=== PATIENT | male | born 1990 | race African-American/Black ===

== ENCOUNTER 2020-11-24 15:23 | Inpatient (IN) | payer OTHER ==
[~2020-11-24] VITALS: Ht 188 cm; Wt 99.9 kg
[~2020-11-24 15:23] MED LIST: VARE05TA PO
[2020-11-24 18:00] LABS: HEMATOCRIT 49.2 % (42.0-52.0); HEMOGLOBIN 16.5 g/dl (13.5-17.5); MEAN CORPUSCULAR HGB CONC 33.5 g/dl (32.0-36.5); MEAN CORPUSCULAR VOLUME 83.4 fl (80.0-96.0); PLATELET COUNT, AUTOMATED 203 10^3/uL (150-450); WHITE BLOOD COUNT 7.1 10^3/uL (4.0-10.0)
[2020-11-24 18:28] LABS: AMPHETAMINES LEVEL URINE NEGATIVE (NEGATIVE); BARBITURATES URINE NEGATIVE (NEGATIVE); BENZODIAZEPINES URINE NEGATIVE (NEGATIVE); CANNABINOIDS URINE NEGATIVE (NEGATIVE); COCAINE METABOLITE URINE NEGATIVE (NEGATIVE); METHADONE URINE NEGATIVE (NEGATIVE); OPIATES URINE NEGATIVE (NEGATIVE); PHENCYCLIDINE URINE NEGATIVE (NEGATIVE)
[2020-11-24 18:32] LABS: RSV AMPLIFICATION NEGATIVE (NEGATIVE)
[2020-11-24 18:36] LABS: ACETAMINOPHEN LEVEL < 2.0 UG/ML (10.0-30.0); ALBUMIN 4.1 GM/DL (3.2-5.2); ALT/SGPT 51 U/L (12-78); BILIRUBIN,DIRECT 0.2 MG/DL (0.0-0.2); BILIRUBIN,TOTAL 0.6 MG/DL (0.2-1.0); BLOOD UREA NITROGEN 8 MG/DL (7-18); CALCIUM LEVEL 9.4 MG/DL (8.5-10.1); CARBON DIOXIDE LEVEL 28 MEQ/L (21-32); CHLORIDE LEVEL 104 MEQ/L (98-107); CREATININE FOR GFR 1.05 MG/DL (0.70-1.30); ETHYL ALCOHOL (ETHANOL) 0.004 % (0.000-0.010); GLOMERULAR FILTRATION RATE > 60.0 (>60); GLUCOSE, FASTING 91 MG/DL (70-100); POTASSIUM SERUM 4.3 MEQ/L (3.5-5.1); SODIUM LEVEL 138 MEQ/L (136-145); TOTAL PROTEIN 7.7 GM/DL (6.4-8.2)
[2020-11-24] MEDS ORDERED: MAALOX 30 ML SUSP *UDC PO PRN (20:50)
[2020-11-24] MEDS ORDERED: OLANZapine ORAL DISINTEGRATING TAB 5MG PO PRN (20:50)
[2020-11-24] MEDS ORDERED: ACETAMINOPHEN TAB 650MG DOSE (2X325MG) PO PRN (20:50)
[2020-11-24 22:26] VITALS: BP 124/85
[2020-11-24 22:30] VITALS: BP 124/85
[2020-11-24] MEDS: traZODone 50 MG TAB PO PRN (23:01)
[2020-11-25] MEDS ORDERED: LORazepam 2 MG TAB PO PRN (01:15)
[2020-11-25 06:46] VITALS: BP 143/100
[2020-11-25 06:52] VITALS: BP 143/100
[2020-11-25] MEDS: NICOTINE 21MG/24HR 1 EA TRANSDERMAL TD SCH (09:31)
[2020-11-25] MEDS: MULTIVITAMINS/MINERALS THERAP 1 TAB PO SCH (09:31)
[2020-11-25] MEDS: THIAMINE 100 MG TAB PO SCH ×2 (09:32→22:36)
[2020-11-25] MEDS: FOLIC ACID 1 MG TAB PO SCH (09:32)
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
[2020-11-25] MEDS: SERTRALINE HCL 50 MG TAB PO SCH (11:14)
--- NOTE | 2020-11-25 14:29 | HPEPDOC ---
General Date of Admission November 24, 2020 at 20:46 Date of Service: November 25, 2020 Attending Physician: VANESSA ASKEW MD Chief Complaint The patient is a 30-year-old male admitted with a reason for visit of Unspecified Depressive D/O. History of Present Illness 30 yo m with a history of depression and prior suicide attempts/gestures who was referred to the ED for psychiatric evaluation by his mental health provider after he expressed worsening depression with invasive thoughts of passive suicidal ideation. In the ED CBC, BMP, and tox screen were wnl and he was a dmitted to the [facility] for psychiatric evaluation and management. Medicine is consulted for medical evaluation. Home Medications No Active Prescriptions or Reported Meds Allergies Coded Allergies: No Known Allergies (Unverified , 06/24/14) Past Medical History Medical History Depression with prior suicide attempt Surgical History None Family History Significant Family History: Other (Depression) Social History * Smoker: current smoker Alcohol: heavy (daily drinker) Recent Travel/Sick Contacts: Denies: Recent travel, Recent sick contacts Psychosocial History: Decreased mood, Depression A-FIB/CHADSVASC A-FIB History Current/History of A-Fib/PAF?: No Current PO Anticoag Therapy: No Age/Risk Factor Scoring CHADSVASC: CHADSVASC Response (Comments) Value Age Risk Factor Age < 65 years old 0 Gender Risk Factor Male 0 Hx of CHF No 0 Hx of HTN No 0 Hx of Stroke/TIA/or VTE No 0 Hx of Diabetes No 0 Hx of Vascular Disease No 0 Total 0 Treatment Treatment ordered: NONE Reason Anticoagulant not given: Not indicated/[id number] Review of Systems Constitutional: Denies: Chills, Fever, Night Sweats Eyes: Denies: Pain, Vision change ENT: Denies: Head Aches, Ear Pain, Dysphagia Skin: Denies: Rash, Lesions, Breakdown Pulmonary: Denies: Dyspnea, Cough Cardiovascular: Denies: Chest Pain, Palpitations, Orthopnea, Paroxysmal Noc. Dyspnea, Lt Headedness Gastrointestinal: Denies: Nausea, Vomiting, Abdominal Pain, Diarrhea Genitourinary: Denies: Dysuria, Frequency, Incontinence, Retention Hematologic: Denies: Bruising, Bleeding Excessively Endocrine: Denies: Polydipsia, Polyphagia, Polyuria, Heat Intolerance, Cold In tolerance, Other Endocrine Sx Musculoskeletal: Denies: Neck Pain, Back Pain, Joint Pain, Muscle Pain, Spasms Neurological: Denies: Weakness, Numbness, Change in speech, Confusion Psych: Reports: Depression, Thoughts of Self Harm; Denies: Mood Normal (depressed mood), Thoughts of Harming Other Physical Examination General Exam: Positive: Alert, No Acute Distress Eye Exam: Positive: PERRLA, Conjunctiva & lids normal, EOMI; Negative: Sclera icteric ENT Exam: Positive: Atraumatic, Mucous membr. moist/pink, Pharynx Normal Neck Exam: Positive: Supple; Negative: JVD, thyromegaly Chest Exam: Positive: Clear to auscultation, Normal air movement Heart Exam: Positive: Rate Normal, Regular Rhythm, Normal S1, Normal S2; Negative: Murmurs, Rubs Abdomen Exam: Positive: Normal bowel sounds, Soft; Negative: Tenderness, Hepatospenomegaly Extremity Exam: Positive: Normal pulses; Negative: Clubbing, Cyanosis, Edema Skin Exam: Positive: Nl turgor and temperature; Negative: Breakdown, Lesion Neuro Exam: Positive: Normal Gait, Normal Speech, Cranial Nerves 3-12 NL, Reflexes 2+ Psych Exam: Positive: Memory Intact, Oriented x 3; Negative: Mood NL (depressed mood) Vital Signs Vital Signs Date Time Temp Pulse Resp B/P (MAP) Pulse Ox O2 Delivery O2 Flow Rate FiO2 11/25/20 06:52 96.8 96 16 143/100 (114) 98 Room Air Laboratory Data Labs 24H Laboratory Tests 2 11/24/20 17:46: Nucleated Red Blood Cells % (auto) 0.0, Anion Gap 6L, Glomerular Filtration Rate > 60.0, Calcium Level 9.4, Total Bilirubin 0.6, Direct Bilirubin 0.2, Aspartate Amino Transf (AST/SGOT) 28, Alanine Aminotransferase (ALT/SGPT) 51, Alkaline Phosphatase 92, Total Protein 7.7, Albumin 4.1, Albumin/Globulin Ratio 1.1, Thyroid Stimulating Hormone (TSH) 1.160, Salicylates Level 2.0L, Urine Opiates Screen NEGATIVE, Urine Methadone Screen NEGATIVE, Acetaminophen Level < 2.0L, Urine Barbiturates Screen NEGATIVE, Urine Phencyclidine Screen NEGATIVE, Urine Amphetamines Screen NEGATIVE, Urine Benzodiazepines Screen NEGATIVE, Urine Cocaine Metabolite Screen NEGATIVE, Urine Cannabinoids Screen NEGATIVE, Ethyl Alcohol Level 0.004, Coronavirus (COVID-19)(PCR) NEGATIVE, Influenza Type A (RT- PCR) NEGATIVE, Influenza Type B (RT-PCR) NEGATIVE, Respiratory Syncytial Virus (PCR) NEGATIVE CBC/BMP Laboratory Tests 11/24/20 17:46 Assessment/Plan 30 yo M with a history of depression who is admitted to the [facility] for severe depression with suicidal ideation. Depression with suicidal ideation: -Plan per primary psych team Nicotine addiction: -Declined replacement therapy -Counselled to consider quitting for health benefit. Alcohol use disorder with c/f dependence: -Was placed on CIWA protocol with symptom trigger PO ativan PRN. -MVI/folic acid/thiamine He has no other active medical issues at this time. Medicine will sign off. Plan / VTE VTE Prophylaxis Ordered?: No VTE Exclusion Mechanical Proph: Low Risk for VTE VTE Exclusion Pharmacological: At Low Risk for VTE VANESSA ASKEW MD November 25, 2020 12:01
[2020-11-25 16:11] VITALS: BP 113/70
[2020-11-25] MEDS: traZODone 50 MG TAB PO PRN (22:36)
[2020-11-26 06:23] VITALS: BP 146/82
[2020-11-26] MEDS: SERTRALINE HCL 50 MG TAB PO SCH (09:50)
[2020-11-26] MEDS: FOLIC ACID 1 MG TAB PO SCH (09:50)
[2020-11-26] MEDS: THIAMINE 100 MG TAB PO SCH ×2 (09:50→20:53)
[2020-11-26] MEDS: MULTIVITAMINS/MINERALS THERAP 1 TAB PO SCH (09:50)
[2020-11-26] MEDS: NICOTINE 21MG/24HR 1 EA TRANSDERMAL TD SCH (09:51)
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
[2020-11-26 16:12] VITALS: BP 119/79
[2020-11-26 20:40] VITALS: BP 117/78
[2020-11-26] MEDS: traZODone 50 MG TAB PO PRN (20:53)
[2020-11-27 06:59] VITALS: BP 117/76
--- NOTE | 2020-11-27 09:03 | MHIPNPDOC ---
[facility] Progress Note Progress Note DATE OF SERVICE: 11/27/20 The patient remains in his room most of the time and is extremely withdrawn, preoccupied and quite blunted. He states that he has no appetite and not been eating very much and only using snacks here and there. He is drinking enough. He has no physical complaints and not in any acute distress. He is fully cooperating with the medicine and has no complaint of side effect. So far not feeling much different. He appears markedly depressed, withdrawn, but denies any active suicidal thoughts. HISTORY: . VITAL SIGNS: See below. NEW TEST RESULTS: . CURRENT MEDICATIONS: See below. MENTAL STATUS EXAMINATION: Patient is a 30-year old male, who is withdrawn, preoccupied. Speech: Is , relevant, but not productive and not spontaneous. Language skills are , only fair. Thought processes including: Relevant. Thought content: He is denying any active suicidal thoughts or plan, but stated very worthless, hopeless]. Abstract reasoning, and computation: Fair. Description of associations: Lacking any spontaneous and not productive. Description of abnormal or psychotic thoughts: Denies any psychotic symptoms. Judgment: Fair. Insight: fair.. Orientation: , Oriented. Recent and remote memory: Fair. Attention span and concentration: Fair. Language: . Fund of knowledge: Average. Mood: Markedly depressed. Affect: Blunted and preoccupied]. DIAGNOSES: 1. . Major depression, severe, without psychosis 2. . 3. . ASSESSMENT:[Remains in markedly depressed to state] MANAGEMENT PLAN: [. Continue with the supportive therapy and antidepressant]. TIME SPENT: [20] minutes. Vital Signs Vital Signs Date Time Temp Pulse Resp B/P (MAP) Pulse Ox O2 Delivery O2 Flow Rate FiO2 11/27/20 06:59 98.4 112 16 117/76 (90) 98 Room Air Current Medications Current Medications Medications (Trade) Dose Ordered Sig/Pato Route PRN Reason Start Time Stop Time Status Last Admin Dose Admin Acetaminophen (Tylenol Tab) 650 mg Q6HP PRN PO HEADACHE or DISCOMFORT 11/24/20 20:50 Al Hydrox/Mg Hydrox/Simethicone (Mylanta) 30 ml Q4HP PRN PO HEARTBURN/INDIGESTION 11/24/20 20:50 Folic Acid (Folic Acid) 1 mg DAILY PO 11/25/20 09:00 11/26/20 09:50 Home Med (Med Rec Complete!) ASDIRECTED XX 11/24/20 19:15 11/24/20 19:16 DC Lorazepam (Ativan) 2 mg ASDIRECTED PRN PO SEE PROTOCOL 11/25/20 01:15 Magnesium Hydroxide (Milk Of Magnesia) 30 ml DAILYPRN PRN PO CONSTIPATION 11/24/20 20:50 Multivitamins (Theragram-M) 1 tab DAILY PO 11/25/20 09:00 11/26/20 09:50 Nicotine (Nicoderm Cq 21mg) 1 patch DAILY TD 11/25/20 09:00 11/26/20 09:51 Olanzapine (ZyPREXA ZYDIS) 5 mg Q4HP PRN PO ANXIETY/AGITATION 11/24/20 20:50 Sertraline HCl (Zoloft) 50 mg DAILY PO 11/25/20 09:00 11/26/20 10:38 DC 11/26/20 09:50 Sertraline HCl (Zoloft) 100 mg DAILY PO 11/27/20 09:00 Thiamine HCl (Thiamine HCl) 100 mg BID PO 11/25/20 09:00 11/28/20 08:59 11/26/20 20:53 Trazodone HCl (Desyrel) 50 mg QHSP PRN PO INSOMNIA 11/24/20 20:50 11/26/20 20:53 Allergies Coded Allergies: No Known Allergies (Unverified , 06/24/14) ANISA PHILIP M.D. November 27, 2020 09:03
[2020-11-27] MEDS: NICOTINE 21MG/24HR 1 EA TRANSDERMAL TD SCH (09:04)
[2020-11-27] MEDS: FOLIC ACID 1 MG TAB PO SCH (09:04)
[2020-11-27] MEDS: SERTRALINE 100 MG TAB PO SCH (09:04)
[2020-11-27] MEDS: THIAMINE 100 MG TAB PO SCH (09:04)
[2020-11-27] MEDS: MULTIVITAMINS/MINERALS THERAP 1 TAB PO SCH (09:04)
[2020-11-27 14:30] VITALS: BP 111/68
[2020-11-27 16:24] VITALS: BP 122/73
[2020-11-27] MEDS: MOM 30ML SUSPENSION UDC PO PRN (18:36)
[2020-11-27] MEDS: traZODone 50 MG TAB PO PRN (22:45)
[2020-11-28 06:20] VITALS: BP 140/94
[2020-11-28] MEDS: SERTRALINE 100 MG TAB PO SCH (08:38)
[2020-11-28] MEDS: NICOTINE 21MG/24HR 1 EA TRANSDERMAL TD SCH (08:38)
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
[2020-11-28 16:08] VITALS: BP 119/74
[2020-11-29 06:27] VITALS: BP 123/71
[2020-11-29] MEDS: SERTRALINE 100 MG TAB PO SCH (08:52)
[2020-11-29] MEDS: NICOTINE 21MG/24HR 1 EA TRANSDERMAL TD SCH (08:55)
[2020-11-29 16:18] VITALS: BP 121/80
[2020-11-29] MEDS: traZODone 50 MG TAB PO PRN (20:36)
[2020-11-29] MEDS: ARIPiprazole 2 MG TAB PO SCH (20:36)
[2020-11-30 06:40] VITALS: BP 106/88
[2020-11-30] MEDS: NICOTINE 21MG/24HR 1 EA TRANSDERMAL TD SCH (08:14)
[2020-11-30] MEDS: SERTRALINE 100 MG TAB PO SCH (08:14)
--- NOTE | 2020-11-30 10:03 | MHIPNPDOC ---
[facility] Progress Note Progress Note DATE OF SERVICE: 11/30/20 The patient is eating this morning and is more productive in his response. He stated that he wanted to stay in the service despite the incident last year, but he feels the [employer] is trying to discharge him against his wish. He feels that he would meet medical discharge criteria, but is afraid that he may not get that discharge and may not be able to get proper medical care after discharge. He is tolerating Zoloft without any side effects, but states that he is not feeling much better yet. He sometimes feels that there are 2 or 3 different thoughts in his brain and one is telling him that there is no use and he should , and the other one is arguing against. He does not describe any clear hallucination, but he feels more like a debate going on in his head.. He is a however, denying any suicidal intent unable to contract for safety and is willing to try increased Zoloft. HISTORY: . VITAL SIGNS: See below. NEW TEST RESULTS: . CURRENT MEDICATIONS: See below. MENTAL STATUS EXAMINATION: Patient is a 50-year old male, who is , alert and more responsive. Speech: Is more productive. Language skills are fair. Thought processes including: Relevant, coherent . Thought content: More hallucination or paranoia, and there is a debate going on in his brain about suicide but does not have any plan or intent of suicide. Abstract reasoning, and computation: Fair. Description of associations: , Relevant, organized. Description of abnormal or psychotic thoughts: None. Judgment: Fair. Insight: fair. . Orientation: , Well-oriented. Recent and remote memory: Good. Attention span and concentration: Fair. Language: . Fund of knowledge: Average . Mood: , Depressed. Affect: Blunted but appropriate . DIAGNOSES: 1. Major depression. 2. . 3. . ASSESSMENT:[Remains depressed but slightly more productive] MANAGEMENT PLAN: [Increased Zoloft 150 mg and continue with the supportive therapy]. TIME SPENT: [20] minutes. Vital Signs Vital Signs Date Time Temp Pulse Resp B/P (MAP) Pulse Ox O2 Delivery O2 Flow Rate FiO2 11/30/20 06:40 98.4 94 20 106/88 (94) 100 Room Air Current Medications Current Medications Medications (Trade) Dose Ordered Sig/Pato Route PRN Reason Start Time Stop Time Status Last Admin Dose Admin Acetaminophen (Tylenol Tab) 650 mg Q6HP PRN PO HEADACHE or DISCOMFORT 11/24/20 20:50 Al Hydrox/Mg Hydrox/Simethicone (Mylanta) 30 ml Q4HP PRN PO HEARTBURN/INDIGESTION 11/24/20 20:50 Aripiprazole (AbiLIFY) 2 mg QHS PO 11/29/20 21:00 11/29/20 20:36 Folic Acid (Folic Acid) 1 mg DAILY PO 11/25/20 09:00 11/27/20 18:08 DC 11/27/20 09:04 Home Med (Med Rec Complete!) ASDIRECTED XX 11/24/20 19:15 11/24/20 19:16 DC Lorazepam (Ativan) 2 mg ASDIRECTED PRN PO SEE PROTOCOL 11/25/20 01:15 Cancel Magnesium Hydroxide (Milk Of Magnesia) 30 ml DAILYPRN PRN PO CONSTIPATION 11/24/20 20:50 11/27/20 18:36 Multivitamins (Theragram-M) 1 tab DAILY PO 11/25/20 09:00 11/27/20 18:08 DC 11/27/20 09:04 Nicotine (Nicoderm Cq 21mg) 1 patch DAILY TD 11/25/20 09:00 11/28/20 08:38 Olanzapine (ZyPREXA ZYDIS) 5 mg Q4HP PRN PO ANXIETY/AGITATION 11/24/20 20:50 Sertraline HCl (Zoloft) 50 mg DAILY PO 11/25/20 09:00 11/26/20 10:38 DC 11/26/20 09:50 Sertraline HCl (Zoloft) 100 mg DAILY PO 11/27/20 09:00 11/30/20 08:14 Thiamine HCl (Thiamine HCl) 100 mg BID PO 11/25/20 09:00 11/27/20 18:08 DC 11/27/20 09:04 Trazodone HCl (Desyrel) 50 mg QHSP PRN PO INSOMNIA 11/24/20 20:50 11/29/20 20:36 Allergies Coded Allergies: No Known Allergies (Unverified , 06/24/14) ANISA PHILIP M.D. November 30, 2020 10:03
[2020-11-30 19:16] VITALS: BP 124/79
[2020-11-30] MEDS: ARIPiprazole 2 MG TAB PO SCH (20:31)
[2020-11-30] MEDS: traZODone 50 MG TAB PO PRN (20:31)
[2020-12-01 06:15] VITALS: BP 150/93
[2020-12-01] MEDS: SERTRALINE HCL 50 MG TAB PO SCH (08:02)
[2020-12-01] MEDS: NICOTINE 21MG/24HR 1 EA TRANSDERMAL TD SCH (08:03)
--- NOTE | 2020-12-01 10:24 | MHIPNPDOC ---
[facility], [place] Progress Note Progress Note DATE OF SERVICE: 12/01/20 The patient remains somewhat withdrawn and seclusive but is showing much more productive speech, and reports feeling slightly better. He is tolerating increased the Zoloft and reports to his slept better and also eating better and not having strange thoughts in his head anymore. He is clearly showing some improvement and denies any suicidal thoughts. He has no physical complaints and no complaint of side effect and agrees with the treatment plan and hoping for discharge soon. HISTORY: . VITAL SIGNS: See below. NEW TEST RESULTS: . CURRENT MEDICATIONS: See below. MENTAL STATUS EXAMINATION: Patient is a 30-year old male, who is , cooperative, in no acute distress. Speech: Is more productive. Language skills are good. Thought processes including: , Coherent and relevant. Thought content: Denies any suicidal thoughts. Abstract reasoning, and computation: fair. Description of associations: , Relevant, coherent. Description of abnormal or psychotic thoughts: None. Judgment: fair. Insight: fair. ]. Orientation: , Oriented. Recent and remote memory: Good. Attention span and concentration: Fair. Language: . Fund of knowledge: Average. Mood: , Moderately depressed, anxious. Affect: Blunted but appropriate]. DIAGNOSES: 1. . Major depression 2. . 3. . ASSESSMENT:[Cooperating with the treatment and showing some improvement] MANAGEMENT PLAN: [. Continue with the current treatment]. TIME SPENT: [20] minutes. Vital Signs Vital Signs Date Time Temp Pulse Resp B/P (MAP) Pulse Ox O2 Delivery O2 Flow Rate FiO2 12/01/20 06:15 98.7 89 18 150/93 (112) 100 Room Air Current Medications Current Medications Medications (Trade) Dose Ordered Sig/Pato Route PRN Reason Start Time Stop Time Status Last Admin Dose Admin Acetaminophen (Tylenol Tab) 650 mg Q6HP PRN PO HEADACHE or DISCOMFORT 11/24/20 20:50 Al Hydrox/Mg Hydrox/Simethicone (Mylanta) 30 ml Q4HP PRN PO HEARTBURN/INDIGESTION 11/24/20 20:50 Aripiprazole (AbiLIFY) 2 mg QHS PO 11/29/20 21:00 11/30/20 20:31 Folic Acid (Folic Acid) 1 mg DAILY PO 11/25/20 09:00 11/27/20 18:08 DC 11/27/20 09:04 Home Med (Med Rec Complete!) ASDIRECTED XX 11/24/20 19:15 11/24/20 19:16 DC Lorazepam (Ativan) 2 mg ASDIRECTED PRN PO SEE PROTOCOL 11/25/20 01:15 Cancel Magnesium Hydroxide (Milk Of Magnesia) 30 ml DAILYPRN PRN PO CONSTIPATION 11/24/20 20:50 11/27/20 18:36 Multivitamins (Theragram-M) 1 tab DAILY PO 11/25/20 09:00 11/27/20 18:08 DC 11/27/20 09:04 Nicotine (Nicoderm Cq 21mg) 1 patch DAILY TD 11/25/20 09:00 11/28/20 08:38 Olanzapine (ZyPREXA ZYDIS) 5 mg Q4HP PRN PO ANXIETY/AGITATION 11/24/20 20:50 Sertraline HCl (Zoloft) 50 mg DAILY PO 11/25/20 09:00 11/26/20 10:38 DC 11/26/20 09:50 Sertraline HCl (Zoloft) 100 mg DAILY PO 11/27/20 09:00 11/30/20 09:55 DC 11/30/20 08:14 Sertraline HCl (Zoloft) 150 mg DAILY PO 12/01/20 09:00 12/01/20 08:02 Thiamine HCl (Thiamine HCl) 100 mg BID PO 11/25/20 09:00 11/27/20 18:08 DC 11/27/20 09:04 Trazodone HCl (Desyrel) 50 mg QHSP PRN PO INSOMNIA 11/24/20 20:50 11/30/20 20:31 Allergies Coded Allergies: No Known Allergies (Unverified , 06/24/14) ANISA PHILIP M.D. Dec 01, 2020 10:24
--- NOTE | 2020-12-01 12:18 | MHIPN ---
[facility] PROGRESS NOTE DATE: 11/29/2020 VITAL SIGNS: Blood pressure 121/80, pulse 83, temperature 98.2. This is a video assessment. He is in the hospital. I am at home. He is seen in the presence of staff. CHIEF COMPLAINT: Says he feels "the same." SUBJECTIVE: Seen for followup. Indicates feels the same, depressed, somewhat anxious. Feels hopeless, despondent with suicidal thoughts. He also spoke of his thoughts going from place to place. The anxiety tends to increase. He also suggests can, at times, hear his thoughts, his own voice. MENTAL STATUS EXAMINATION: Neat, cooperative. No agitation. Possibly some psychomotor retardation. He is coherent. Affect restricted with little reactivity. Has suicidal thoughts. No firm plans. Possibly homicidal ideas or intents. Does not at present appear to be internally preoccupied. Cognition grossly intact. Judgment and insight remains compromised. ASSESSMENT: Major depressive disorder, recurrent, severe. Possibility of trauma-related symptoms also need to be considered. PLAN: Continue sertraline 100 mg daily. Given audible thoughts, would suggest starting him empirically on Abilify 2 mg at night. This may help augment the sertraline as well. The rationale, risks, benefits, drawbacks, and alternatives of using the Abilify are discussed, and he understands that. Continue the rest of the precautions. Encourage participation in activities in the unit. He will be seen by the assigned clinician tomorrow.
[2020-12-01] MEDS: MOM 30ML SUSPENSION UDC PO PRN (13:24)
[2020-12-01 18:06] VITALS: BP 133/79
[2020-12-01 18:25] VITALS: BP 133/79
[2020-12-01] MEDS: traZODone 50 MG TAB PO PRN (20:10)
[2020-12-01] MEDS: ARIPiprazole 2 MG TAB PO SCH (20:10)
[2020-12-02 06:00] VITALS: BP 120/74
[2020-12-02] MEDS: SERTRALINE HCL 50 MG TAB PO SCH (08:27)
[2020-12-02] MEDS: NICOTINE 21MG/24HR 1 EA TRANSDERMAL TD SCH (08:53)
--- NOTE | 2020-12-02 09:07 | MHIPNPDOC ---
[facility] Progress Note Progress Note DATE OF SERVICE: 12/02/20 Patient is out of his bed, dressed in his eating breakfast and is in no acute distress. He reports that he is feeling better and not as tired or feeling hopeless, helpless and denies any suicidal thoughts. He is tolerating increased the Zoloft with a significant to benefit and is assuring increased psychomotor activity and claims that he is not having those strange thoughts in his head and is feeling safe. Continue with the current treatment and possibly discharge tomorrow back to his unit. HISTORY: . VITAL SIGNS: See below. NEW TEST RESULTS: . CURRENT MEDICATIONS: See below. MENTAL STATUS EXAMINATION: Patient is a 30-year old male, who is in no acute distress. Speech: Is low tone, but coherent, relevant. Language skills are fair. Thought processes including: , Organized. Thought content: Denies any suicidal thoughts. Abstract reasoning, and computation: Fair. Description of associations: , Organized. Description of abnormal or psychotic thoughts: None. Judgment: Fair. Insight: fair.. Orientation: , Well-oriented. Recent and remote memory: Good. Attention span and concentration: Fair. Language: . Fund of knowledge: Average. Mood: Moderately depressed. Affect: , Somewhat blunted but appropriate. DIAGNOSES: 1. . Major depression 2. . 3. . ASSESSMENT:Showing improvement and no suicidal MANAGEMENT PLAN: . Continue current treatment and possible discharge tomorrow. TIME SPENT: 20 minutes. Vital Signs Vital Signs Date Time Temp Pulse Resp B/P (MAP) Pulse Ox O2 Delivery O2 Flow Rate FiO2 12/02/20 06:00 97.7 80 18 120/74 (89) 100 Room Air Current Medications Current Medications Medications (Trade) Dose Ordered Sig/Pato Route PRN Reason Start Time Stop Time Status Last Admin Dose Admin Acetaminophen (Tylenol Tab) 650 mg Q6HP PRN PO HEADACHE or DISCOMFORT 11/24/20 20:50 Al Hydrox/Mg Hydrox/Simethicone (Mylanta) 30 ml Q4HP PRN PO HEARTBURN/INDIGESTION 11/24/20 20:50 Aripiprazole (AbiLIFY) 2 mg QHS PO 11/29/20 21:00 12/01/20 20:10 Folic Acid (Folic Acid) 1 mg DAILY PO 11/25/20 09:00 11/27/20 18:08 DC 11/27/20 09:04 Home Med (Med Rec Complete!) ASDIRECTED XX 11/24/20 19:15 11/24/20 19:16 DC Lorazepam (Ativan) 2 mg ASDIRECTED PRN PO SEE PROTOCOL 11/25/20 01:15 Cancel Magnesium Hydroxide (Milk Of Magnesia) 30 ml DAILYPRN PRN PO CONSTIPATION 11/24/20 20:50 12/01/20 13:24 Multivitamins (Theragram-M) 1 tab DAILY PO 11/25/20 09:00 11/27/20 18:08 DC 11/27/20 09:04 Nicotine (Nicoderm Cq 21mg) 1 patch DAILY TD 11/25/20 09:00 11/28/20 08:38 Olanzapine (ZyPREXA ZYDIS) 5 mg Q4HP PRN PO ANXIETY/AGITATION 11/24/20 20:50 Sertraline HCl (Zoloft) 50 mg DAILY PO 11/25/20 09:00 11/26/20 10:38 DC 11/26/20 09:50 Sertraline HCl (Zoloft) 100 mg DAILY PO 11/27/20 09:00 11/30/20 09:55 DC 11/30/20 08:14 Sertraline HCl (Zoloft) 150 mg DAILY PO 12/01/20 09:00 12/02/20 08:27 Thiamine HCl (Thiamine HCl) 100 mg BID PO 11/25/20 09:00 11/27/20 18:08 DC 11/27/20 09:04 Trazodone HCl (Desyrel) 50 mg QHSP PRN PO INSOMNIA 11/24/20 20:50 12/01/20 20:10 Allergies Coded Allergies: No Known Allergies (Unverified , 06/24/14) ANISA PHILIP M.D. Dec 02, 2020 09:07
[2020-12-02 17:00] VITALS: BP 123/83
[2020-12-02] MEDS: ARIPiprazole 2 MG TAB PO SCH (20:13)
[2020-12-03 07:08] VITALS: BP 135/72
[2020-12-03] MEDS: SERTRALINE HCL 50 MG TAB PO SCH (08:19)
[2020-12-03] MEDS: NICOTINE 21MG/24HR 1 EA TRANSDERMAL TD SCH (08:21)
[2020-12-03] MEDS ORDERED: ABIL1TAB13 PO ×2 (08:57→14:58)
[2020-12-03] MEDS ORDERED: SERT50TA29 PO (08:57)
--- NOTE | 2020-12-03 10:50 | MHDSPDOC ---
[facility] Discharge Summary Discharge Summary DATE OF ADMISSION: November 24, 2020 at 20:46 DATE OF DISCHARGE: 12/03/2020 DISCHARGE DIAGNOSES: 1. . Major depression, recurrent, severe without psychosis 2. . REASON FOR ADMISSION: The patient has a long history of depression admitted due to increasing depressive symptoms of feeling hopeless, helpless, and suicidal. He was also reporting poor sleep, preoccupation with thoughts of suicide and getting different thoughts in his brain that is sometimes telling him to kill himself CONSULTANTS INVOLVED: TREATMENT AND PROGRESS ON THE UNIT : . He was seen for supportive psychotherapy. Lethality evaluation and continued on his medicine of Abilify 2.5 mg at bedtime and Zoloft, initially 50 mg, gradually increased to 150 mg daily.. HOSPITAL COURSE: . He was initially markedly withdrawn, preoccupied, extremely slow to respond with a significant psychomotor retardation. With the increased Zoloft and continued supportive therapy he is showing gradual improvement He is not as withdrawn and spending more time out of his bed and his sleep and appetite is improved and is denying any more suicidal thoughts. He is not disturbed by the thoughts anymore and becoming more verbally productive and spon taneous. His request for discharge from the service, has been approved and he is very concerned about the being able to get follow-up outpatient treatment but was reassured. He will be discharged with the recommendation to continue his current medications and outpatient counseling DISCHARGE ASSESSMENT: Improved, stable, and no suicidal. MENTAL STATUS EXAMINATION ON DISCHARGE: Patient is a 30-year old male, who is in no acute distress . Speech is rational, coherent. Language skills are good. Thought processes including: Relevant. Thought content: Denies any suicidal thoughts. Abstract reasoning, and computation: , Fair. Description of associations: , Organized. Description of abnormal or psychotic thoughts: None. Judgment: , Fair. Insight: fair. Orientation to , well-oriented. Recent and remote memory: Good. Attention span and concentration: , Fair. Language: . Fund of knowledge: Average. Mood: , Mildly depressed. Affect: Blunted but appropriate. MEDICATIONS ON DISCHARGE: - , Zoloft 150 mg daily and Abilify 2.5 mg at bedtime for 30 days for . - for . - for ]. PLAN/FOLLOWUP ARRANGEMENTS: [As arranged by the operations planner]. The amount of time spent in the coordination of care for this patient was approximately [40] minutes. ETOH/Disorder Med Rx ETOH/DRUG DISORDER RX: N/A Vital Signs/I&Os Vital Signs Date Time Temp Pulse Resp B/P (MAP) Pulse Ox O2 Delivery O2 Flow Rate FiO2 12/03/20 07:08 97.7 89 18 135/72 (93) 100 Room Air Medications Scheduled Aripiprazole (Abilify) 2 Mg Tablet, 2 MG PO QHS for mood for 7 Days, #7 Sertraline HCl (Sertraline HCl) 50 Mg Tablet, 150 MG PO DAILY for depression for 7 Days, #21 Allergies Coded Allergies: No Known Allergies (Unverified , 06/24/14) ANISA PHILIP M.D. Dec 03, 2020 10:50
[2020-12-03] MEDS ORDERED: SERT-141 PO (14:58)
== END 2020-12-03 11:30 | disposition home or self-care (01) | DRG 885 ==
LOC: M ED 15:23 → M ED INP 20:46 → M PSY 22:10
PROVIDERS: ADMIT Psychiatry & Neurology Psychiatry; ATTEND Psychiatry & Neurology Psychiatry
DX: F33.2 Major depressive disorder, recurrent severe without psychotic features (principal); R45.851 Suicidal ideations; F17.210 Nicotine dependence, cigarettes, uncomplicated; Z20.822 Contact with and (suspected) exposure to COVID-19; F10.10 Alcohol abuse, uncomplicated; Z91.5 Personal history of self-harm; Z56.2 Threat of job loss

== ENCOUNTER 2020-12-10 15:22 | Emergency (ER) | payer OTHER ==
[~2020-12-10] VITALS: Ht 188 cm; Wt 101.7 kg
[~2020-12-10 15:22] MED LIST changes: +ABIL1TAB13 PO; +SERT-141 PO; +SERT50TA29 PO
[2020-12-10] MEDS ORDERED: NS 1,000 ML IV SCH (15:30)
[2020-12-10] MEDS ORDERED: CHARCOAL ACTIVATED LIQUID 25 GM/120 ML BTL PO ONE (15:40)
[2020-12-10 15:47] LABS: VENOUS BASE EXCESS 1.4 (-2.0-2.0); VENOUS HCO3 26.1 MEQ/L (23.0-27.0); VENOUS O2 SATURATION 98.1 % (60.0-80.0); VENOUS PARTIAL PRESSURE CO2 41.8 mmHg (38.0-50.0); VENOUS PARTIAL PRESSURE O2 115.5 mmHg (30.0-50.0); VENOUS PH 7.414 UNITS (7.330-7.430); VENOUS STANDARD HCO3 25.7 MEQ/L; VENOUS TOTAL CO2 27.4 MEQ/L (24.0-28.0)
[2020-12-10 16:02] LABS: BASO % 0.3 % (0.0-1.0); EOS # 0.1 10^3/uL (0.0-0.5); EOS % 1.5 % (0.0-3.0); HEMATOCRIT 47.3 % (42.0-52.0); HEMOGLOBIN 15.9 g/dl (13.5-17.5); LYMPH # 1.9 10^3/uL (1.5-5.0); LYMPH % 32.2 % (24.0-44.0); MEAN CORPUSCULAR HGB CONC 33.6 g/dl (32.0-36.5); MEAN CORPUSCULAR VOLUME 83.4 fl (80.0-96.0); MONO # 0.5 10^3/uL (0.0-0.8); MONO % 8.4 % (2.0-8.0); NEUTROPHILS # 3.3 10^3/uL (1.5-8.5); NEUTROPHILS % 57.1 % (36.0-66.0); PLATELET COUNT, AUTOMATED 220 10^3/uL (150-450); RED BLOOD COUNT 5.67 10^6/uL (4.30-6.10); WHITE BLOOD COUNT 5.8 10^3/uL (4.0-10.0)
[2020-12-10 16:13] LABS: AMPHETAMINES LEVEL URINE NEGATIVE (NEGATIVE); BARBITURATES URINE NEGATIVE (NEGATIVE); BENZODIAZEPINES URINE NEGATIVE (NEGATIVE); CANNABINOIDS URINE NEGATIVE (NEGATIVE); COCAINE METABOLITE URINE NEGATIVE (NEGATIVE); METHADONE URINE NEGATIVE (NEGATIVE); OPIATES URINE NEGATIVE (NEGATIVE); PHENCYCLIDINE URINE NEGATIVE (NEGATIVE)
[2020-12-10 16:36] LABS: RSV AMPLIFICATION NEGATIVE (NEGATIVE)
[2020-12-10 16:38] LABS: ACETAMINOPHEN LEVEL < 2.0 UG/ML (10.0-30.0); ALBUMIN 3.8 GM/DL (3.2-5.2); ALT/SGPT 19 U/L (12-78); BILIRUBIN,DIRECT 0.1 MG/DL (0.0-0.2); BILIRUBIN,TOTAL 0.3 MG/DL (0.2-1.0); BLOOD UREA NITROGEN 8 MG/DL (7-18); CALCIUM LEVEL 8.7 MG/DL (8.5-10.1); CARBON DIOXIDE LEVEL 28 MEQ/L (21-32); CHLORIDE LEVEL 106 MEQ/L (98-107); CPK CREATINE PHOSPHOKINASE 75 U/L (39-308); CREATININE FOR GFR 0.94 MG/DL (0.70-1.30); ETHYL ALCOHOL (ETHANOL) < 0.003 % (0.000-0.010); GLOMERULAR FILTRATION RATE > 60.0 (>60); GLUCOSE, FASTING 84 MG/DL (70-100); SALICYLATE LEVEL 2.2 MG/DL (5.0-30.0); SODIUM LEVEL 140 MEQ/L (136-145); THYROID STIMULATING HORMONE 0.812 uIU/ML (0.358-3.740); TOTAL PROTEIN 7.2 GM/DL (6.4-8.2)
[2020-12-11] MEDS ORDERED: ABIL1TAB13 PO (01:30)
[2020-12-11] MEDS ORDERED: CELE1CAP4 PO (01:30)
[2020-12-11] MEDS ORDERED: SERT50TA29 PO (01:30)
--- NOTE | 2020-12-11 03:19 | ECGEPIP ---
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
[2020-12-11 05:33] VITALS: BP 116/66
== END 2020-12-11 05:40 ==
LOC: EDBD 15:22 → M ED 15:22
DX: T50.992A Poisoning by other drugs, medicaments and biological substances, intentional self-harm, initial encounter (principal); X83.8XXA Intentional self-harm by other specified means, initial encounter; T14.91XA Suicide attempt, initial encounter; F17.200 Nicotine dependence, unspecified, uncomplicated; Y99.9 Unspecified external cause status; Y92.9 Unspecified place or not applicable; Y93.9 Activity, unspecified

== ENCOUNTER → 2020-12-28 | Outpatient (CLI) | payer OTHER ==
[~2020-12-28] MED LIST changes: +CELE1CAP4 PO
--- NOTE | 2020-12-28 09:34 | REP ---
INDICATION: NONDISP FX OF BASE OF FIFTH MC BONE, RIGHT HAND, INIT. COMPARISON: None. TECHNIQUE: Four views of the right hand FINDINGS: Fracture at the base of the 5th metacarpal bone is appreciated with surrounding periosteal reaction and callus formation suggesting healing process. Remainder of the examination appears normal. IMPRESSION: Suspected healing at the fracture base of the 5th metacarpal bone. <Electronically signed by Nir Bettencourt > 12/28/20 0931
== END ==
LOC: M SOG 08:28
PROVIDERS: ATTEND Orthopaedic Surgery Sports Medicine
DX: S62.346A Nondisplaced fracture of base of fifth metacarpal bone, right hand, initial encounter for closed fracture (principal); X58.XXXA Exposure to other specified factors, initial encounter; Y92.9 Unspecified place or not applicable